=== PATIENT | female | born 1980 | race Caucasian/White ===

== ENCOUNTER → 2021-07-22 12:32 | Outpatient (CLI) | payer OTHER, SELFPAY ==
--- NOTE | ~2021-07-22 | US_ITS ---
EXAMINATION: US thyroid EXAM DATE: 07/22/2021 12:48 INDICATION: Thyroid nodule. TECHNIQUE: Multiple grayscale and Doppler images of the thyroid were obtained (by a technologist who performed the scan) and subsequently reviewed. Individual nodules and recommendations may be reporte d in accordance with TI-RADS system as designated by the 2017 ACR White Paper TI-RADS committee. Comp devenson is made to prior examination from 08/14/2019. FINDINGS: The right thyroid lobe measures 4.9 x 1.3 x 1.5 cm, the left thyroid lobe measures 3.8 x 1.2 x 1.6 cm . Diffusely hypervascular and mildly heterogeneous thyroid echogenicity. There is no change in the si ze of previously described left thyroid lobe isoechoic category TR 3 nodule measuring up to 1.1 cm, b enign. There is a left thyroid lobe nodule in the inferior pole measuring 7 x 5 x 8 mm, solid (2 points), hy poechoic (2 points), wider than tall, smooth well defined margin, without echogenic foci, category TR 4 for this nodule. Dimensions provided on previous examination were 6 x 4 x 5 mm which is either sta ble or very modest growth over 2 year interval. No biopsy indicated at this time. IMPRESSION: Hypervascular thyroid with several small nodules; consider 2 year follow-up ultrasound. Reviewed, dictated and finalized at location A. IMPRESSION: Hypervascular thyroid with several small nodules; consider 2 year f ollow-up ultrasound.
== END ==
DX: E04.1 Nontoxic single thyroid nodule (principal)
CPT/HCPCS: 76536

== ENCOUNTER → 2022-08-06 10:24 | Outpatient (CLI) | payer OTHER, SELFPAY ==
--- NOTE | ~2022-08-06 | US_ITS ---
EXAMINATION: US abdomen complete DATE: 08/06/2022 11:18 INDICATION: Abdominal bloating TECHNIQUE: Multiple grayscale and Doppler ultrasound images of the abdomen were obtained. COMPARISON: CT, 01/09/2014 FINDINGS: The head and body of the pancreas are normal. The pancreatic tail is obscured by bowel gas. The liver is normal with normal echogenicity and echotexture. No surface nodularity. Normal hepatope all flow in the main portal vein. The gallbladder is normal with no abnormal wall thickening, pericho lecystic fluid or stones. The normal common bile duct measures 3 mm. There was no sonographic Nolan sign. The visualized portions of the aorta and inferior vena cava are normal. The right kidney measures 9.8 x 4.5 x 4.6 cm. The left kidney measures 9.3 x 4.8 x 4.3 cm. The kidney s demonstrate normal parenchymal echogenicity. There is no hydronephrosis. The spleen is normal in ap pearance and measures 9.2 cm. IMPRESSION: 1. No sonographic correlate for the patient's symptoms. Reviewed, dictated and finalized at location F. ICAL CARE CLINICAL NURSE SPECIALIST
== END ==
PROVIDERS: PCP Physician Assistant
DX: R14.0 Abdominal distension (gaseous) (principal)
CPT/HCPCS: 76700

== ENCOUNTER 2022-10-12 08:16 | Outpatient (CLI) | payer OTHER, SELFPAY ==
--- NOTE | ~2022-10-12 | MM_ITS ---
EXAMINATION: MM screening asher BI w norma HISTORY: Screening mammogram TECHNIQUE: Craniocaudal and mediolateral oblique 3-D tomosynthesis images were obtained and synthetic 2-D images were generated. CAD analysis was submitted and interpreted. COMPARISON: No prior mammogram is available for comparison at this institution. BREAST PARENCHYMAL COMPOSITION: The breasts are heterogeneously dense, which may obscure small masses . FINDINGS: There is no evidence of suspicious mass, calcification, or architectural distortion to sugg est malignancy in either breast. There has been no suspicious interval change. IMPRESSION: 1. No mammographic evidence of malignancy. 2. Recommend routine screening mammography in one year. BI-RADS Category 1: Negative Reviewed, dictated and finalized at location A. TRANSFER WORKER
== END 2022-10-12 08:17 | disposition home or self-care (01) ==
LOC: ANHIMG 08:16
PROVIDERS: PCP Physician Assistant; Visit Provider Obstetrics & Gynecology
DX: Z12.31 Encounter for screening mammogram for malignant neoplasm of breast (principal)
CPT/HCPCS: 77063; 77067

== ENCOUNTER 2023-12-09 08:34 | Outpatient (CLI) | payer BC, SELFPAY ==
--- NOTE | ~2023-12-09 | MM_ITS ---
EXAMINATION: MM screening asher BI w norma HISTORY: Screening TECHNIQUE: Craniocaudal and mediolateral oblique 3-D tomosynthesis images were obtained and synthetic 2-D images were generated. CAD analysis was submitted and interpreted. COMPARISON: 10/12/2022 BREAST PARENCHYMAL COMPOSITION: Dense: The breasts are heterogeneously dense, which may obscure small masses FINDINGS: There is no evidence of suspicious mass, calcification, or architectural distortion to sugg est malignancy in either breast. There has been no suspicious interval change. IMPRESSION: 1. No mammographic evidence of malignancy. 2. Recommend routine screening mammography in one year. BI-RADS Category 1: Negative Reviewed, dictated and finalized at location A.
== END 2023-12-09 08:35 | disposition home or self-care (01) ==
PROVIDERS: PCP Physician Assistant; Visit Provider Obstetrics & Gynecology
DX: Z12.31 Encounter for screening mammogram for malignant neoplasm of breast (principal)
CPT/HCPCS: 77063; 77067

== ENCOUNTER 2025-02-02 14:43 | Outpatient (CLI) | payer BC, SELFPAY ==
--- OUTSIDE RECORDS SUMMARY | 2025-02-02 14:56 | XMS_ITS | Clinical Summary ---
Author Organization [facility] Address [address] [place] [address] Care Team Providers Care Glass Or Mirror Inspector Name Role Phone Wilner Simon DO Primary Care Provider + Allergies No known active allergies Medications naltrexone (DEPADE) 50 MG tablet Take 50 mg by mouth daily. Takes 1.25 mg daily Active Multiple Vitamin (MULTI-VITAMIN DAILY OR) Active vitamin B-12 (CYANOCOBALAMIN) 500 MCG tablet Take 500 mcg by mouth daily. Active vitamin D3, cholecalciferol, 1000 UNIT Tab tablet Take 1 tablet by mouth daily. Active Family History Medical History Relation Comments No Known Problems Father Parkinson's Disease Maternal Grandfather Parkinson's Disease Maternal Grandmother Diabetes Maternal Uncle Hypothyroidism Mother No Known Problems Sister Relation Status Comments Father Alive Maternal Grandfather Maternal Grandmother Alive Maternal Uncle Mother Alive Sister Social History Tobacco Use Types Packs/Day Years Used Date Smoking Tobacco: Never Cigarettes Smokeless Tobacco: Never Tobacco Cessation:Counseling Given: No Alcohol Use Standard Drinks/Week Comments Yes 0 (1 standard drink = 0.6 oz pur e alcohol) occasionally PHQ-2 Answer Date Recorded PHQ-2 Score - If the patient scores above 3, please move on to questions 3-9 0 07/08/2022 Comments Unknown Sex and Gender Information Value Date Recorded Sex Assigned at Not on file Legal Sex Female 2:09 PM CDT Gender Identity Not on file Sexual Orientation Not on file Last Filed Vital Signs Vital Sign Reading Time Taken Comments Blood Pressure 104/71 07/08/2022 3:09 PM CDT Pulse 60 07/08/2022 3:09 PM CDT Temperature 36.9 C (98.5 F) 07/08/2022 3:09 PM CDT Respiratory Rate - - Oxygen Saturation 99% 07/08/2022 3:09 PM CDT Inhaled Oxygen Concentration - - Weight 53.1 kg (117 lb) 07/08/2022 3:09 PM CDT Height 152.4 cm (5') 07/08/2022 3:09 PM CDT Body Mass Index 22.85 07/08/2022 3:09 PM CDT Plan of Treatment Upcoming Encounters Date Type Department Care Team (Late st Contact Info) Description 02/27/2025 3:00 PM CDT Office Visit [facility] - [place] [address] [place] [address] [address] [place] [address] Skyler Wang MD [address] [facility] [address] [place] [address] 11/19/2025 9:20 AM MARKETING DEVELOPMENT MANAGER Office Visit [facility] - [place] [address] [place] [address] Wilner Simon P, DO [address] [place] [address] Health Maintenance Due Date Last Done Comments Cervical Cancer Screening Pa p Smear (Age 30 to 64) Every 3 Years 1981 Annual Physical 1984 Hepatitis C 1999 DTaP, Tdap and Td Vaccines ( 1 - Tdap) 2000 Hepatitis B Vaccines (2 of 3 - Hep B Twinrix 3-dose series) 05/14/2010 04/16/2010 Cervical Cancer Screening Pa p with HPV Testing (Age 30 to 64) Every 5 Years 2011 Cervical Cancer Screening with HPV 2011 Mammogram Screening 2021 COVID-19 Vaccine ( - 2023-2 5 season) 2024 HPV Vaccines Aged Out No longer eligi ble based on patient's age to complete this topic Meningococcal B Vaccine Aged Out No l onger eligible based on patient's age to complete this topic Meningococcal Vaccine Aged Out No julio gonzalo eligible based on patient's age to complete this topic Pneumococcal Vaccine: Pediat rics (0 to 5 Years) and At-Risk Patients (6 to 49 Years) Aged Out No longer eligi ble based on patient's age to complete this topic RSV Immunizations Under 20 Months Aged Out No longer eligible based on patient's age to complete this topic Insurance [facility] Care Teams Glass Or Mirror Inspector Relationship Specialty Start Date End Date Wilner Simon DO [address] [place] [id number] PCP - General FAMILY PRACTICE 12/05/24
--- OUTSIDE RECORDS SUMMARY | 2025-02-02 14:56 | XMS_ITS | Continuity of Care Document ---
Author Organization [facility] Address [address] [place] [address] [place] [address] Phone Care Team Providers Care Steam Clothes Press Operator Name Role Phone Kishor Rueda MD Unavailable Unavailable Allergies, Adverse Reactions, Alerts Substance Reaction Status Criticality No Known Allergies Active No Inform ation Medications Medication Instructions Dosage Effective Dates (start - stop) Status Comments No Drug Therapy Prescribed Procedures Procedure Date OFFICE/OUTPATIENT VISIT, EST PREV VISIT, NEW, AGE 18-39 Advance Directives Directive Yes / No Effective Date File Name No Information Encounters Encounter Description Practice Location Reason(s) For Visit Diagnoses Date Provider Providers Copied on Encounter [facility], [address], [place], [place], [id number], [place] tel:[phone] [facility] No Information 0 Mohit Iverson. [address], [place], [place], [id number] , [place]. tel:[phone] Referring Provider: Kishor Rueda [address], [place], [place], [id number]. tel:[phone] OFFICE/OUTPA TIENT VISIT, EST [facility], [address], [place], [place], [id number], [place] tel:[phone] [facility] thyroid1 (chief complaint) leukopenia 1 (chief complaint) Autoimmune thyroiditisLeukopen ia 9 Mohit Iverson. [address], [place], [place], [id number] , [place]. tel:[phone] Referring Provider: Kishor Rueda, [address], [place], [place], [id number]. tel:[phone] PREV VISIT, NEW, AGE 18-39 [facility], [address], [place], [place], [id number], tel:[phone] [facility] Medicine Physical (chief complaint) Encntr for general adult medical exam w/o abnormal findings 9 Mohit Iverson. [address], [facility] [address], [place], [place], [id number] , [place]. tel:[phone] Referring Provider: Kishor Rueda, Ranulfo Jolley [facility] [address], [place], [place], [id number]. tel:[phone] Family History Family Member Type Diagnosis Age At Onset Father Problem (finding) Alive and well Sister Problem (finding) Alive and well Mother Problem (finding) Thyroid disorder Mother Problem (finding) Alive and well Payers Payer name Insurance type Covered alliance party ID Authoriza tion(s) No Information Social History Type Description Quantity Date Captured Comments Alcohol Use Details Unknown Caffeine Use Details Unknown Tobacco Use Status No Information Smoking Status No Information Sex Female Chief Complaint And Reason For Visit No Information Plan Of Treatment Date Type Action Status Goal Special diet education compl eted Goal Special diet education compl eted Referral Ordered: US THYROID ordered History Of Present Illness Encounter Date Complaint History Of Prese nt Illness leukopenia1 Pt has mild leuk openia. Neutrophile ok. Pt denies any fever or infection. thyroid1 Pt has normal TS H but her TPO and thyroglobulin is high. Pt denies any chest pain or headache or palpitation or weight gain or loss. Her mom has thyroid disease of unknown cause. Pt denies any neck pain, dysphagia. Physical Pt needs annual physical. Pt is very healthy. pt does not take any medication Pt states that she recently did some seasonal type of work and she had to stand on her feet all day and uses her hand a lot and she notices mild hand swelling and some pain and weakness both hand and some foot pain. pt states that she stopped working there and her foot and hand symptoms improved Pt denies any injury. Pt denies any numbness or tingling pt denies waking up at night with symptoms Medications Administered Medication Instructions Dosage Effective Dates (start - stop) Status Comments No Drug Therapy Prescribed Instructions Date Instruction Additional Infor mation Special diet education Related t o Body mass index (BMI) 25.0-25.9, adult Increase physical activity Relat ed to Autoimmune thyroiditis Special diet education Related t o Body mass index (BMI) 25.0-25.9, adult Increase physical activity Relat ed to Encntr for general adult medical exam w/o abnormal findings Assessments Type Assessment Date No Information
--- OUTSIDE RECORDS SUMMARY | 2025-02-02 14:57 | XMS_ITS | Data Portability ---
Author Organization [facility] Address [address] [place] [address] Assessment Encounter Date Assessment Date Assessment LastModified by Organization Details LastModified Time 03/30/2023 03/30/2023 Patient verbally agreed to Telehealth conferencing visit today by audio/visual capability and understands this visit will be billed to his/her insurance. Discussed with patient that since no physical exam could be done this can inhibit further evaluation of current situation Discussed that this type of visit is non HIPPA compliant telecommunication device due to COVID-19 and acute telehealth requirements are being met per COVID-19 guidelines [email or web address] Not available 03/30/2023 22:02:50 Plan of Treatment Reminders Order Date Submit Date Provider Last Modified By Organization Details Last Modified Time Details Appointments None recorded. Lab vitamin B12 + folate, serum or blood 2022 023 [place] Kaitlin, 2022 Jesus Jain, [address], [place], [address], 3 16:36:55 T3, free, serum or plasma 2022 023 CESARKIZZY Madrigal, 2022 Jesus Jain, [address], [place], [address], 3 16:36:58 T4, free, serum 2022 023 [place] [facility] 20[facility] Jesus Jain, [address], [place], [address], 3 16:36:56 thyroid peroxidas e (tpo) Ab, serum 2022 023 [facility], 2022 Jseus Jain, [address], [place], [address], 3 16:36:57 CMP, serum or plasma 2022 023 [facility], 2022 Jesus Jain, [address], [place], [address], 3 16:36:54 CBC w/ diff 2022 023 [facility], 2022 Jesus Jain, [address], [place], [address], 16:36:54 thyroglob ulin Ab, serum 2022 023 [facility], 2022 Jesus Jain, [address], [place], [address], 16:36:57 iodine, 24-hour urine - Please give her supplies when she comes for lab test 2022 023 [facility], 2022 Jesus Jain, [address], [place], [address], 13:10:53 vitamin D, 25-hydrox y, total, serum 2022 023 [facility], 2022 Jesus Jain, [address], [place], [address], 16:36:56 vitamin B12, serum 2022 023 [facility] ([place]), [address] [place], [address], 3 03:36:24 T3, free, serum or plasma 2022 023 [facility] ([place]), [address] [place], [address], 3 03:36:24 TSH + free T4, serum 2022 023 [facility] [address] [facility], [place], [address], 3 03:36:21 thyroid peroxidas e (tpo) Ab, serum 2022 023 [facility] ([place]), [address] [place], [address], 3 03:36:24 thyroglob ulin Ab, serum 2022 023 [place] [facility] [address] [place], [address], 3 03:36:23 iodine, serum 2022 023 [facility] ([place]), [address] [place], [address], 3 03:36:22 vitamin D, 25-hydrox y, total, serum 2022 023 [facility] ([place]), [address] [facility], [place], [address], 3 03:36:23 CBC w/ auto diff 2022 023 [facility] ([place]), [address] [place], [address], 3 03:36:22 CMP, serum or plasma 2022 023 [place] [facility] [address] [facility], [place], [address], 3 03:36:21 vitamin B12, serum 2020 021 [facility], [address] [place] [address], [address], Ph 1 12:41:09 vitamin D, 25-hydrox y, total, serum 2020 [facility], [address] [place] [address], [address], Ph 12:41:09 T3, free, serum or plasma 2020 [facility], [address] [place] [address], [address], Ph 12:41:09 TSH + free T4, serum 2020 [facility], [address] [place] [address], [address], Ph 12:41:09 thyroid peroxidas e (tpo) Ab, serum 2020 [facility], [address] [place] [address], [address], Ph 12:41:09 thyroglob ulin Ab, serum 2020 [facility], [address] [place] [address], [address], Ph 12:41:09 iodine, serum 2020 [facility], [address] [place] [address], [place], [address], 03:36:39 cortisol, am, serum 2020 [facility], [address] [place] [address], [address], Ph 12:41:09 SARS CoV 2 IgG + IgM Ab panel, serum or plasma [email or web address], [address] [place], [address], Ph [phone] 16:44:04 CBC w/ auto diff 2020 [facility], [address] [place], [address], Ph 12:41:09 CMP, serum or plasma 2020 [facility], [address] [place], [address], Ph [phone] 12:41:08 lipid panel, serum 2020 [facility], [address] [place], [address], Ph 12:41:08 iron + TIBC + ferritin, serum 2020 [facility], [address] [place], [address], Ph 12:41:08 Referral None recorded. Procedures None recorded. Surgeries None recorded. Imaging US, thyroid 2020 [facility], [address] Re [address]ain, [address], [place], [address], 18:09:37 Medication Orders amitripty line 10 mg tablet 2022 023 [email or web address] [facility] [id number] In [facility], [address], [place], [address], 3 11:34:23 Patient TargetsNo targets recorded. Patient InstructionsNo instructions recorded. Reason for Referral None Reported. Results Created Date Observation Date Name Description Value Unit Range Abnormal Flag Note LastModifiedBy Organization Detail LastModifiedTime 07/16/20 21 07/18/2021 IODIN E, SERUM OR PLASM A iodine, serum or plasma 40.3 ug/L 40.0-9 2.0 Limit of quant itati on = 20 Not Available [facility] ([facility]) [address] [place], [address], 07/18/2021 03:36:36 11/29/19 22 11/29/2021 WANG C DISEA SE COMPR EHENS PUSHPA deamidated gliadin abs, IgA 4 units 0-19 Negat pushpa 0 - 19 Weak Posit pushpa 20 - 30 Moder ate to Stron g Posit pushpa >30 Not Available [facility] ([facility]) [address] [place], [address], 12/01/2021 18:35:52 11/29/19 22 11/29/2021 WANG C DISEA SE COMPR EHENS PUSHPA deamidated gliadin abs, IgG 5 units 0-19 Negat pushpa 0 - 19 Weak Posit pushpa 20 - 30 Moder ate to Stron g Posit pushpa >30 Not Available [facility] ([facility]) [address] [place], [address], 12/01/2021 18:35:52 11/29/19 22 11/29/2021 WAGN C DISEA SE COMPR EHENS PUSHPA T-transgluta minase (ttg) IgA <2 U/mL 0-3 Negat pushpa 0 - 3 Weak Posit pushpa 4 - 10 Posit pushpa >10 Tissu e Trans gluta elsie e (tTG) has been ident ified as the endom ysial antig en. Studi es have demon str- ated that endom ysial IgA antib odies have over 99% speci ficit y for glute n sensi tive enter opath y. Not Available [facility] ([facility]) [address] [place], [address], 12/01/2021 18:35:52 11/29/19 22 11/29/2021 WANG C DISEA SE COMPR EHENS PUSHPA T-transgluta minase (ttg) IgG 3 U/mL 0-5 Negat pushpa 0 - 5 Weak Posit pushpa 6 - 9 Posit pushpa >9 Not Available [facility] ([facility]) [address] [place], [address], 12/01/2021 18:35:52 11/29/19 22 11/29/2021 WANG C DISEA SE COMPR EHENS PUSHPA immunoglobul in A, qn, serum 297 mg/dL 87-352 Not Available [facility] ([facility]) [address] [place], [address], 12/01/2021 18:35:52 11/29/19 22 12/01/2021 WANG C DISEA SE COMPR EHENS PUSHPA endomysial antibody IgA Negati ve negati ve Not Available [facility] ([facility]) [address] [place], [address], 12/01/2021 18:35:52 11/29/19 22 11/29/2021 TSH+F REE T4 TSH 2.890 uIU/m L 0.450- 4.500 Not Available [facility] ([facility]) [address] [place], [address], 12/01/2021 18:35:52 11/29/19 22 11/29/2021 TSH+F REE T4 T4,free(dire ct) 1.21 NG/dL 0.82-1 .77 Not Available [facility] ([facility]) [address] [place], [address], 12/01/2021 18:35:52 11/29/19 22 11/29/2021 VITAM IN D, 25-HY DROXY vitamin D, 25-hydroxy 53.8 NG/mL 30.0-1 00.0 Vitam in D defic iency has been defin ed by the Insti tute of Medic ine and an Endoc rine Socie ty pract ice guide line as a level of serum 25-OH vitam in D less than 20 ng/mL (1,2) . The Endoc rine Socie ty went on to furth er defin e vitam in D insuf ficie ncy as a level betwe en 21 and 29 ng/mL (2). 1. IOM (Inst itute of Medic ine). 2010. Dieta ry refer ence intak es for calci um and D. Mahsa gabriel [place]: The [facility] Press . 2. Maria M cantu MF, Nelson oliveira [place], [place] off-F errar i [place], et al. Evalu ation , treat ment, and preve ntion of vitam in D defic iency : an Endoc rine Socie ty clini nano pract ice guide line. JCEM. 2010; 96(7) :1911 -30. Not Available [facility] ([facility]) [address] [place], [address], 12/01/2021 18:35:52 11/29/19 22 12/01/2021 CALPR OTECT IN, FECAL calprotectin , fecal TNP ug/g Test not perfo rmed. Stool speci men (in respe ctive colle ction devic e for test order ed) was not recei oma. Shanice ntrat ion Inter preta tion Follo w-Up <16 - 50 ug/g Carmen l None >50 -120 ug/g Borde rline Re-ev aluat e in 4-6 weeks >120 ug/g Abnor mal Repea t as clini manjinder indic ated Not Available [facility] ([facility]) [address] [place], [address], 12/01/2021 18:35:53 11/29/19 22 11/29/2021 VITAM IN B12 vitamin B12 >2000 pg/mL 232-12 45 above high normal Not Available [facility] ([facility]) [address] [place], [address], 12/01/2021 18:35:53 11/29/19 22 11/29/2021 THYRO ID PEROX IDASE (TPO) AB thyroid peroxidase (tpo) Ab 28 IU/mL 0-34 Not Available [facility] ([facility]) [address] [place], [address], 12/01/2021 18:35:53 11/29/19 22 12/01/2021 OVA + CHRIS ITE EXAM ova + parasite exam TNP Test not perfo rmed. Stool speci men (in respe ctive Nanorex ction devic e for test order ed) was not recei oma. These resul ts were obtai xiomy using wet prepa ratio n(s) and trich mignon stain ed smear . This test does not inclu de testi ng for Crypt ospor idium parvu m, Cyclo spora , or Micro spori alex. Not Available [facility] ([facility]) [address] [place], [address], 12/01/2021 18:35:54 11/29/19 22 11/29/2021 TRIIO DOTHY LAURYN E (T3), FREE triiodothyro nine (T3), free 2.7 pg/mL 2.0-4. 4 Not Available [facility] ([facility]) [address] [place], [address], 12/01/2021 18:35:54 11/29/19 22 12/01/2021 YERSI MALOU + VIBRI O, STOOL yersinia + vibrio, stool TNP Test not perfo rmed. Stool speci men (in respe meHeyAnita ction devic e for test order ed) was not recei oma. Not Available [facility] ([facility]) [address] [place], [address], 12/01/2021 18:35:54 11/29/19 22 12/01/[address] PROBL EM request problem TNP Test not perfo rmed. Stool speci men (in respe ctive Nanorex ction devic e for test order ed) was not recei oma. TEST: [id number] 5 Calpr otect in, Fecal 04373 3 Ova + Chris ite Exam [id number] 3 Yersi malou + Vibri o, Stool Not Available [facility] ([facility]) [address] [place], [address], 12/01/2021 18:35:55 12/03/1912/04/2021 CALPR OTECT IN, FECAL calprotectin , fecal 27 ug/g 0-120 Shanice ntrat ion Inter preta tion Follo w-Up <16 - 50 ug/g Carmen l None >50 -120 ug/g Borde rline Re-ev aluat e in 4-6 weeks >120 ug/g Abnor mal Repea t as clini manjinder indic ated Not Available [facility] ([facility]) [address] [facility], [place], [address], 12/09/2021 14:37:24 12/03/1912/09/2021 OVA + CHRIS ITE EXAM ova + parasite exam Final report These resul ts were obtai xiomy using wet prepa ratio n(s) and trich mignon stain ed smear . This test does not inclu de testi ng for Crypt ospor idium parvu m, Cyclo spora , or Micro spori alex. Not Available [facility] ([facility]) [address] [facility], [place], [address], 12/09/2021 14:37:25 12/03/1912/09/2021 OVA + CHRIS ITE EXAM result 1 Commen t No ova, cysts , or chris ites seen. One negat pushpa speci men does not rule out the possi bilit y of a chris itic infec tion. Not Available [facility] ([facility]) [address] [place], [address], 12/09/2021 14:37:25 12/03/1912/05/2021 YERSI MALOU + VIBRI O, STOOL yersinia + vibrio, stool Final report Not Available [facility] ([facility]) [address] [place], [address], 12/09/2021 14:37:25 12/03/19 22 12/05/2021 YERSI MALOU + VIBRI O, STOOL result 1 No Vibrio isolat ed. Not Available [facility] ([facility]) [address] [facility], [place], [address], 12/09/2021 14:37:25 12/03/19 22 12/05/2021 YERSI MALOU + VIBRI O, STOOL result 2 No Yersin ia isolat ed Not Available [facility] ([facility]) [address] [facility], [place], [address], 12/09/2021 14:37:25 10/01/19 23 10/02/2022 CMP14 +EGFR glucose 79 mg/dL 70-99 Not Available [facility] ([facility]) [address] [place], [address], 10/03/2022 03:36:20 10/01/19 23 10/02/2022 CMP14 +EGFR BUN 10 mg/dL 6-24 Not Available [facility] ([facility]) [address] [place], [address], 10/03/2022 03:36:20 10/01/19 23 10/02/2022 CMP14 +EGFR creatinine 0.69 mg/dL 0.57-1 .00 Not Available [facility] ([facility]) [address] [place], [address], 10/03/2022 03:36:20 10/01/19 23 10/02/2022 CMP14 +EGFR eGFR 112 mL/mi n/1.7 3 >59 Not Available [facility] ([facility]) [address] [place], [address], 10/03/2022 03:36:20 10/01/19 23 10/02/2022 CMP14 +EGFR BUN/creatini ne ratio 14 9-23 Not Available [facility] ([facility]) [address] [place], [address], 10/03/2022 03:36:20 10/01/19 23 10/02/2022 CMP14 +EGFR sodium 139 mmol/ L 134-14 4 Not Available [facility] ([facility]) [address] [facility] [place], [address], 10/03/2022 03:36:20 10/01/19 23 10/02/2022 CMP14 +EGFR potassium 4.2 mmol/ L 3.5-5. 2 Not Available [facility] ([facility]) [address] [place], [address], 10/03/2022 03:36:20 10/01/19 23 10/02/2022 CMP14 +EGFR chloride 105 mmol/ L 96-106 Not Available [facility] ([facility]) [address] [place], [address], 10/03/2022 03:36:20 10/01/1910/02/2022 CMP14 +EGFR carbon dioxide, total 19 mmol/ L 20-29 below low normal Not Available [facility] ([facility]) [address] [place], [address], 10/03/2022 03:36:20 10/01/19 23 10/02/2022 CMP14 +EGFR calcium 9.0 mg/dL 8.7-10 .2 Not Available [facility] ([facility]) [address] [place], [address], 10/03/2022 03:36:20 10/01/1910/02/2022 CMP14 +EGFR protein, total 6.3 g/dL 6.0-8. 5 Not Available [facility] ([facility]) [address] [place], [address], 10/03/2022 03:36:20 10/01/19 23 10/02/2022 CMP14 +EGFR albumin 4.4 g/dL 3.8-4. 8 Not Available [facility] ([facility]) [address] [place], [address], 10/03/2022 03:36:20 10/01/19 23 10/02/2022 CMP14 +EGFR globulin, total 1.9 g/dL 1.5-4. 5 Not Available [facility] ([facility]) [address] [place], [address], 10/03/2022 03:36:20 10/01/19 23 10/02/2022 CMP14 +EGFR A/G ratio 2.3 1.2-2. 2 above high normal Not Available [facility] ([facility]) [address] [place], [address], 10/03/2022 03:36:20 10/01/19 23 10/02/2022 CMP14 +EGFR bilirubin, total 0.5 mg/dL 0.0-1. 2 Not Available [facility] ([facility]) [address] [facility] [place], [address], 10/03/2022 03:36:20 10/01/1910/02/2022 CMP14 +EGFR alkaline phosphatase 45 IU/L 44-121 Not Available [facility] ([facility]) [address] [facility] [place], [address], 10/03/2022 03:36:20 10/01/1910/02/2022 CMP14 +EGFR AST (SGOT) 32 IU/L 0-40 Not Available [facility] ([facility]) [address] [facility] [place], [address], 10/03/2022 03:36:20 10/01/1910/02/2022 CMP14 +EGFR ALT (SGPT) 24 IU/L 0-32 Not Available [facility] ([facility]) [address] [facility] [place], [address], 10/03/2022 03:36:20 10/01/19 23 10/02/2022 TSH+F REE T4 TSH 1.740 uIU/m L 0.450- 4.500 Not Available [facility] ([facility]) [address] [place], [address], 10/03/2022 03:36:21 10/01/19 23 10/02/2022 TSH+F REE T4 T4,free(dire ct) 1.17 NG/dL 0.82-1 .77 Not Available [facility] ([facility]) [address] [place], [address], 10/03/2022 03:36:21 10/01/19 23 10/02/2022 CBC WITH DIFFE RENTI AL/PL ATELE T WBC 5.7 x10e3 /uL 3.4-10 .8 Not Available [facility] ([facility]) [address] [place], [address], 10/03/2022 03:36:22 10/01/19 23 10/02/2022 CBC WITH DIFFE RENTI AL/PL ATELE T RBC 4.36 x10e6 /uL 3.77-5 .28 Not Available [facility] ([facility]) [address] [place], [address], 10/03/2022 03:36:22 10/01/19 23 10/02/2022 CBC WITH DIFFE RENTI AL/PL ATELE T hemoglobin 13.5 g/dL 11.1-1 5.9 Not Available [facility] ([facility]) [address] [place], [address], 10/03/2022 03:36:22 10/01/1910/02/2022 CBC WITH DIFFE RENTI AL/PL ATELE T hematocrit 40.0 % 34.0-4 6.6 Not Available [facility] ([facility]) [address] [place], [address], 10/03/2022 03:36:22 10/01/19 23 10/02/2022 CBC WITH DIFFE RENTI AL/PL ATELE T MCV 92 fL 79-97 Not Available [facility] ([facility]) [address] [facility], [place], [address], 10/03/2022 03:36:22 10/01/19 23 10/02/2022 CBC WITH DIFFE RENTI AL/PL ATELE T MCH 31.0 pg 26.6-3 3.0 Not Available [facility] ([facility]) [address] [facility], [place], [address], 10/03/2022 03:36:22 10/01/19 23 10/02/2022 CBC WITH DIFFE RENTI AL/PL ATELE T MCHC 33.8 g/dL 31.5-3 5.7 Not Available [facility] ([facility]) [address] [facility], [place], [address], 10/03/2022 03:36:22 10/01/19 23 10/02/2022 CBC WITH DIFFE RENTI AL/PL ATELE T RDW 11.8 % 11.7-1 5.4 Not Available [facility] ([facility]) [address] [facility], [place], [address], 10/03/2022 03:36:22 10/01/19 23 10/02/2022 CBC WITH DIFFE RENTI AL/PL ATELE T platelets 234 x10e3 /uL 150-45 0 Not Available [facility] ([facility]) [address] [facility], [place], [address], 10/03/2022 03:36:22 10/01/19 23 10/02/2022 CBC WITH DIFFE RENTI AL/PL ATELE T neutrophils 64 % not estab. Not Available [facility] ([facility]) [address] [facility], [place], [address], 10/03/2022 03:36:22 10/01/19 23 10/02/2022 CBC WITH DIFFE RENTI AL/PL ATELE T lymphs 29 % not estab. Not Available [facility] ([facility]) [address] [facility], [place], [address], 10/03/2022 03:36:22 10/01/19 23 10/02/2022 CBC WITH DIFFE RENTI AL/PL ATELE T monocytes 5 % not estab. Not Available [facility] ([facility]) [address] [facility], [place], [address], 10/03/2022 03:36:22 10/01/19 23 10/02/2022 CBC WITH DIFFE RENTI AL/PL ATELE T eos 1 % not estab. Not Available [facility] ([facility]) [address] [facility], [place], [address], 10/03/2022 03:36:22 10/01/19 23 10/02/2022 CBC WITH DIFFE RENTI AL/PL ATELE T basos 1 % not estab. Not Available [facility] ([facility]) [address] [place], [address], 10/03/2022 03:36:22 10/01/19 23 10/02/2022 CBC WITH DIFFE RENTI AL/PL ATELE T immature cells FINISHED CLOTH CHECKER Not Available [facility] ([facility]) [address] [place], [address], 10/03/2022 03:36:22 10/01/19 23 10/02/2022 CBC WITH DIFFE RENTI AL/PL ATELE T neutrophils (absolute) 3.7 x10e3 /uL 1.4-7. 0 Not Available [facility] ([facility]) [address] [facility], [place], [address], 10/03/2022 03:36:22 10/01/19 23 10/02/2022 CBC WITH DIFFE RENTI AL/PL ATELE T lymphs (absolute) 1.7 x10e3 /uL 0.7-3. 1 Not Available [facility] ([facility]) [address] [facility], [place], [address], 10/03/2022 03:36:22 10/01/19 23 10/02/2022 CBC WITH DIFFE RENTI AL/PL ATELE T monocytes(ab solute) 0.3 x10e3 /uL 0.1-0. 9 Not Available [facility] ([facility]) [address] [facility], [place], [address], 10/03/2022 03:36:22 10/01/19 23 10/02/2022 CBC WITH DIFFE RENTI AL/PL ATELE T eos (absolute) 0.0 x10e3 /uL 0.0-0. 4 Not Available [facility] ([facility]) [address] [facility], [place], [address], 10/03/2022 03:36:22 10/01/19 23 10/02/2022 CBC WITH DIFFE RENTI AL/PL ATELE T baso (absolute) 0.0 x10e3 /uL 0.0-0. 2 Not Available [facility] ([facility]) [address] [facility], [place], [address], 10/03/2022 03:36:22 10/01/19 23 10/02/2022 CBC WITH DIFFE RENTI AL/PL ATELE T immature granulocytes 0 % not estab. Not Available [facility] ([facility]) [address] [facility], [place], [address], 10/03/2022 03:36:22 10/01/19 23 10/02/2022 CBC WITH DIFFE RENTI AL/PL ATELE T immature grans (abs) 0.0 x10e3 /uL 0.0-0. 1 Not Available [facility] ([facility]) [address] [facility], [place], [address], 10/03/2022 03:36:22 01/12/10/02/2022 CBC WITH DIFFE RENTI AL/PL ATELE T NRBC FINISHED CLOTH CHECKER Not Available [facility] ([facility]) [address] [facility], [place], [address], 10/03/2022 03:36:22 10/01/19 23 10/02/2022 CBC WITH DIFFE RENTI AL/PL ATELE T hematology comments: FINISHED CLOTH CHECKER Not Available [facility] ([facility]) [address] [facility], [place], [address], 10/03/2022 03:36:22 10/01/19 23 10/02/2022 IODIN E, SERUM OR PLASM A iodine, serum or plasma TNP ug/L Test not perfo rmed. No speci men recei oma. Requi res: serum or plasm a (from royal blue, trace metal free tube) Conta cted Nella Cornejo rdson on 10/02 Limit of quant itati on = 20 Not Available [facility] ([facility]) [address] [facility], [place], [address], 10/03/2022 03:36:22 10/01/19 23 10/02/2022 VITAM IN D, 25-HY DROXY vitamin D, 25-hydroxy 31.0 NG/mL 30.0-1 00.0 Vitam in D defic iency has been defin ed by the Insti tute of Medic ine and an Endoc rine Socie ty pract ice guide line as a level of serum 25-OH vitam in D less than 20 ng/mL (1,2) . The Endoc rine Socie ty went on to furth er defin e vitam in D insuf ficie ncy as a level betwe en 21 and 29 ng/mL (2). 1. IOM (Inst itute of Medic ine). 2010. Dieta ry refer ence intak es for calci um and D. Mahsa gabriel DC: The Natio nal [facility] Press . 2. Maria M cantu MF, Binrichard ey [place], [place] off-F errar i [place], et al. Evalu ation , treat ment, and preve ntion of vitam in D defic iency : an Endoc rine Socie ty clini nano pract ice guide line. JCEM. 2010; 96(7) :1911 -30. Not Available [facility] ([facility]) [address] [place], [address], 10/03/2022 03:36:23 10/01/19 23 10/02/2022 THYRO GLOBU SHAVONNE ANTIB PAULO thyroglobuli n antibody 58.8 IU/mL 0.0-0. 9 above high normal Thyro globu shavonne Antib paulo measu red by Beckm an Coult er Metho dolog y Not Available [facility] ([facility]) [address] [place], [address], 10/03/2022 03:36:23 10/01/19 23 10/02/2022 VITAM IN B12 vitamin B12 1577 pg/mL 232-12 45 above high normal Not Available [facility] ([facility]) [address] [place], [address], 10/03/2022 03:36:24 10/01/19 23 10/02/2022 THYRO ID PEROX IDASE (TPO) AB thyroid peroxidase (tpo) Ab 39 IU/mL 0-34 above high normal Not Available [facility] ([facility]) [address] [place], [address], 10/03/2022 03:36:24 10/01/1910/02/2022 TRIIO DOTHY LAURYN E (T3), FREE triiodothyro nine (T3), free 3.0 pg/mL 2.0-4. 4 Not Available [facility] ([facility]) [address] [place], [address], 10/03/2022 03:36:24 10/01/1910/02/[address] PROBL EM request problem TNP Test not perfo rmed. No speci men recei oma. TEST: 39560 4 Iodin e, Serum or Plasm a Requi res: serum or plasm a (from royal blue, trace metal free tube) Conta cted Nella Cornejo rdson on 10/02 Not Available [facility] ([facility]) [address] [place], [address], 10/03/2022 03:36:25 10/09/19 23 10/10/2022 FSH AND LH LH 4.9 mIU/m L Adult Femal e: Folli cular phase 2.4 - 12.6 Ovula tion phase 14.0 - 95.6 Lutea l phase 1.0 - 11.4 Postm enopa usal 7.7 - 58.5 Not Available [facility] ([facility]) [address] [place], [address], 10/17/2022 18:54:35 10/09/19 23 10/10/2022 FSH AND LH FSH 7.5 mIU/m L Adult Femal e: Folli cular phase 3.5 - 12.5 Ovula tion phase 4.7 - 21.5 Lutea l phase 1.7 - 7.7 Postm enopa usal 25.8 - 134.8 Not Available [facility] ([facility]) [address] [place], [address], 10/17/2022 18:54:35 10/09/19 23 10/10/2022 ESTRA DIOL estradiol 103.0 pg/mL Adult Femal e: Folli cular phase 12.5 - 166.0 Ovula tion phase 85.8 - 498.0 Lutea l phase 43.8 - 211.0 Postm enopa usal <6.0 - 54.7 Pregn tracie 1st trime ster 215.0 - >4300 .0 Oh ECLIA metho dolog y Not Available [facility] ([facility]) [address] [place], [address], 10/17/2022 18:54:36 10/09/1910/17/2022 TESTO STERO NE, TOTAL , LC/MS testosterone , total, lc/MS 14 NG/dL This test was devel jaied and its perfo rmanc e kaveh cteri stics deter mined by [employer]. It has not been clear ed or appro oma by the Food and Drug Admin istra tion. Refer ence Range : Adult Femal es Preme nopau olga 10 - 55 Postm enopa usal 7 - 40 Not Available [facility] [address] [facility], [place], [address], 10/17/2022 18:54:36 10/09/19 23 10/10/2022 PROGE STERO NE progesterone 0.4 NG/mL Folli cular phase 0.1 - 0.9 Lutea l phase 1.8 - 23.9 Ovula tion [id number]||2025-02-02 15:02:00|MM_ITS|BURKT|Imaging|[id number]|"EXAMINATION: MM screening asher BI w norma HISTORY: Screening TECHNIQUE: Craniocaudal and mediolateral oblique 3-D tomosynthesis images were obtained and synthetic 2-D images were generated. CAD analysis was submitted and interpreted. COMPARISON: Comparison to multiple prior studies sequentially, with oldest reviewed study dated 10/12. BREAST PARENCHYMAL COMPOSITION: Dense: The breasts are heterogeneously dense, which may obscure small masses FINDINGS: There is no evidence of suspicious mass, calcification, or architectural distortion to sugg est malignancy in either breast. There has been no suspicious interval change. IMPRESSION: 1. No mammographic evidence of malignancy. 2. Recommend routine screening mammography in one year. BI-RADS Category 1: Negative Reviewed, dictated and finalized at location A. IMPRESSION: 1. No mammographic evidence of malignancy. 2. Recommend routine screening mammography in one year. BI-RADS Category 1: Negative "
== END 2025-02-02 14:44 | disposition home or self-care (01) ==
LOC: ANHIMG 14:44
PROVIDERS: PCP Physician Assistant; Visit Provider Obstetrics & Gynecology
DX: Z12.31 Encounter for screening mammogram for malignant neoplasm of breast (principal)
CPT/HCPCS: 77063; 77067

== ENCOUNTER 2025-03-12 12:50 | Outpatient (CLI) | payer BC, SELFPAY ==
--- NOTE | ~2025-03-12 | US_ITS ---
EXAMINATION: US thyroid DATE: 03/12/2025 13:05 INDICATION: Follow-up thyroid nodule TECHNIQUE: Multiple ultrasound images of the thyroid were obtained. COMPARISON: 07/22/2021 FINDINGS: The right thyroid lobe measures 4.6 x 1.4 x 1.3 cm. Redemonstration of a 5 mm bulky calcification within the lower pole of the right lobe of the thyroid gland which no further follow-up is needed. The left thyroid lobe measures 3.9 x 1.4 x 1.3 cm. Within the lower pole of the left lobe of the thyroid gland is a 9 x 6 x 10 mm nodule: Composition - spongiform Echogenicity -hyperechoic and isoechoic (1) Shape - wider than tall Margin - smooth Echogenic foci - none. = TR 1, benign Within the mid pole of the left lobe of the thyroid gland is a 11 x 7.8 x 9.6 mm nodule: Composition - spongiform Echogenicity -hyperechoic and isoechoic (1) Shape - wider than tall Margin -ill-defined Echogenic foci - none. = TR 1, benign Within the upper pole of the left lobe of the thyroid gland is a 5.5 x 4.6 x 5.5 mm nodule: Composition - spongiform Echogenicity -hyperechoic and isoechoic (1) Shape - wider than tall Margin -ill-defined Echogenic foci - none. = TR 1, benign The isthmus measures 0.1cm in anterior to posterior dimension. There is otherwise normal echotexture and echogenicity throughout the remainder of the thyroid gland. No additional discrete nodules identified. Increased vascular flow is present. IMPRESSION: Increased vascular flow is detected within the thyroid gland, consistent with Graves' disease versus chronic lymphocytic thyroiditis (Yves's disease). TR 1 nodules within the left lobe of the thyroid gland for which no FNA and no follow-up is recommend ed. While follow-up is not recommended (as per TIRADs criteria) it may be performed, at the discretion of the referring clinician. Reviewed, dictated and finalized at location A. IMPRESSION: Increased vascular flow is detected within the thyroid gland, consistent with G raves' disease versus chronic lymphocytic thyroiditis (Yves's disease). TR 1 nodules within the left lobe of the thyroid gland for which no FNA and no follow-up is recommended. While follow-up is not recommended (as per TIRADs criteria) it may be performed , at the discretion of the referring clinician.
== END 2025-03-12 12:51 | disposition home or self-care (01) ==
PROVIDERS: PCP Internal Medicine; Visit Provider Internal Medicine
DX: E04.1 Nontoxic single thyroid nodule (principal)
CPT/HCPCS: 76536